=== PATIENT | female | born 1955 | race Caucasian/White ===

== ENCOUNTER 2017-05-30 11:56 | Emergency (ER) | payer BC | END 2017-05-30 15:42 | disposition home or self-care (01) | LOC: FTE 11:56 | DX: S80.11XD Contusion of right lower leg, subsequent encounter (principal); X58.XXXD Exposure to other specified factors, subsequent encounter; Z48.817 Encounter for surgical aftercare following surgery on the skin and subcutaneous tissue; Z85.118 Personal history of other malignant neoplasm of bronchus and lung; Z85.828 Personal history of other malignant neoplasm of skin; Z87.891 Personal history of nicotine dependence | CPT/HCPCS: 99283 ==